=== PATIENT | male | born 1945 | race Caucasian/White ===

== ENCOUNTER → 2018-01-01 09:43 | Outpatient (CLI) | payer MEDICARE, BC | END | disposition home or self-care (01) | LOC: D.CT 12-28 08:30 | DX: Z12.9 Encounter for screening for malignant neoplasm, site unspecified (principal) ==

== ENCOUNTER → 2018-01-05 09:27 | Outpatient (CLI) | payer MEDICARE, BC | END | disposition home or self-care (01) | LOC: D.CT 09:27 | DX: Z12.31 Encounter for screening mammogram for malignant neoplasm of breast (principal) ==